=== PATIENT | female | born 1990 ===

== ENCOUNTER → 2016-07-30 | Outpatient (CLI) | payer MEDICAID ==
[2016-07-30 09:56] LABS: INR - (THERAPEUTIC) 1.12 (0.92-1.07); PROTIME 11.8 SECONDS (9.8-11.4)
== END | disposition disaster alternative care site (69) ==
LOC: LGSMG 09:47
PROVIDERS: Internal Medicine
DX: Z48.89 Encounter for other specified surgical aftercare (principal); Z98.890 Other specified postprocedural states